=== PATIENT | male | born 1940 | race Asian ===

== ENCOUNTER → 2017-03-03 | Outpatient (REF) | payer MEDICARE ==
[2017-03-03 18:14] LABS: PERCENT SATURATION 34.3 % (19.7-50.0)
== END ==
LOC: M LAB REF 16:28
PROVIDERS: ATTEND Internal Medicine
DX: D64.9 Anemia, unspecified (principal)

== ENCOUNTER → 2018-01-09 | Outpatient (REF) | payer MEDICARE ==
[2018-01-09 14:00] LABS: APPEARANCE, URINE CLEAR (CLEAR); BACTERIA, URINE AUTO NEGATIVE (NEGATIVE); BILIRUBIN, URINE AUTO NEGATIVE (NEGATIVE); BLOOD, URINE BLOOD NEGATIVE (NEGATIVE); COLOR, URINE YELLOW (YELLOW); GLUCOSE, URINE (UA) AUTO 3+ mg/dL (NEGATIVE); KETONE, URINE AUTO NEGATIVE (NEGATIVE); LEUKOCYTE ESTERASE, URINE AUTO NEGATIVE (NEGATIVE); NITRITE, URINE AUTO NEGATIVE (NEGATIVE); PROTEIN, URINE AUTO NEGATIVE (NEGATIVE); RBC, URINE AUTO 0 /HPF (0-3); SPECIFIC GRAVITY URINE AUTO 1.023 (1.002-1.035); SQUAMOUS EPITHELIAL CELL UR AU 0 /HPF (0-6); UROBILINOGEN, URINE AUTO 0.2 mg/dL (0.0-2.0); WBC, URINE AUTO 9 /HPF (0-3)
== END ==
LOC: M SMT 12:45
DX: R35.1 Nocturia (principal)
CPT/HCPCS: 81001

== ENCOUNTER → 2018-05-11 | Outpatient (REF) | payer MEDICARE ==
[2018-05-17 08:18] LABS: PSA TOTAL 3.7 ng/mL (0.0-4.0)
== END ==
LOC: M LAB REF 16:40
DX: R97.20 Elevated prostate specific antigen [PSA] (principal)
CPT/HCPCS: 84154

== ENCOUNTER → 2019-01-25 | Outpatient (REF) | payer MEDICARE ==
[2019-01-28 00:06] LABS: Lyme Disease IgG/IgM Antibodie <0.91 ISR (0.00-0.90); Lyme Disease IgM Ab Quantitati <0.80 index (0.00-0.79)
== END ==
LOC: M LAB REF 16:47
PROVIDERS: ATTEND Internal Medicine
DX: R53.83 Other fatigue (principal)

== ENCOUNTER → 2021-12-17 | Outpatient (REF) | payer MEDICARE | LOC: M LAB REF 16:23 | PROVIDERS: ATTEND Internal Medicine | DX: Z11.59 Encounter for screening for other viral diseases (principal) ==

== ENCOUNTER → 2025-06-27 | Outpatient (REF) | payer MEDICARE | LOC: M LAB REF 16:56 | PROVIDERS: ATTEND Internal Medicine | DX: R31.9 Hematuria, unspecified (principal) ==